=== PATIENT | female | born 1955 | race Caucasian/White ===

== ENCOUNTER → 2020-06-18 08:20 | Outpatient (BNVA) | payer OTHER, SELFPAY | PROVIDERS: Family Provider Family Medicine; Referring Provider Family Medicine; Visit Provider Podiatrist Foot & Ankle Surgery | DX: M25.571 Pain in right ankle and joints of right foot (principal) | CPT/HCPCS: 73610 ==

== ENCOUNTER 2022-04-22 17:11 | Emergency (ER) | payer MEDICARE, SELFPAY ==
[2022-04-22 17:37] VITALS: BP 167/88; PULSE 96; RESP 16; TEMP 36.8; O2SAT 98; BMI 33.3
--- NOTE | 2022-04-22 17:45 | ED_ITS ---
HPI - Extremity Problem General: Chief complaint: Extremity Problem,Nontraumatic Stated complaint: Back of right leg pain Time Seen by Provider: 04/22/22 17:43 History of Present Illness: 66-year-old female comes in today with complaints of increased swelling and tenderness to the right calf. Patient reports about 6 weeks ago she had twisted her knee and has been nursing the injury for the last 6 weeks. Today she had an x-ray done for further evaluation due to persistent pain. Patient comes to the ER due to concerns that she may be developing a blood clot. Associated symptoms: Deny chest pain Review of Systems General: Reports: 10 or more systems reviewed and unremarkable except in HPI and below Card: Denies: chest pain Resp: Denies: dyspnea Musc: Reports: extremity pain PFS ED PFSH: Medical History (Updated 04/22/22 @ 19:35 by CHATO Dillon) Family history of narcolepsy History of CVA (cerebrovascular accident) Surgical History (Updated 06/18/20 @ 09:04 by Eduardo Roth DPM) History of D&C History of exploratory laparotomy History of pelvic surgery Family History (Updated 06/18/20 @ 08:12 by Ami Chaudhari LPN) Other CAD (coronary artery disease) Cancer Diabetes Stroke Social History (Updated 06/18/20 @ 08:13 by Ami Chaudhari LPN) Smoking and tobacco status: never smoked Second hand smoke exposure: No Alcohol intake: never Household members: spouse Physical Exam Const: COMMON NORMALS: patient oriented x3 Neck/C-Spine: COMMON NORMALS: full ROM Resp: COMMON NORMALS: normal respiratory effort and clear to auscultation bilaterally AUSCULTATION: clear to auscultation bilaterally Cardio: COMMON NORMALS: regular rate RATE: regular rate GI: COMMON NORMALS: Soft to palpation PALPATION: Yes Soft to palpation Extremity: COMMON NORMALS: full ROM RIGHT LOWER EXTREMITY: Yes lower leg (Calf tenderness and swelling) Right lower leg: Yes inspection, Yes palpation and Yes neurovascular exam Neuro: COMMON NORMALS: patient oriented x3 Course Vital Signs: Vital signs: Vital Signs Temperature 98.2 F 04/22/22 18:06 Pulse Rate 96 04/22/22 18:06 Respiratory Rate 16 04/22/22 18:06 Blood Pressure 167/88 04/22/22 18:06 Pulse Oximetry 98 04/22/22 18:06 Oxygen Delivery Me thod 04/22/22 18:06 MDM - Extremity (Nontraumatic) Medical Decision Making 66-year-old female comes in today with complaints of right lower extremity pain and discomfort. Patient has pain in the calf that increases with ambulation. Patient injured her leg about 6 weeks ago. Patient had some x-rays done at [facility] today which were unremarkable. On exam patient has tenderness to the right calf with some popliteal angle tenderness. Homans' sign is positive. Differential diagnosis includes not limited to Barker's cyst, meniscal tear, DVT. Ultrasound was negative for DVT. Since patient has had pain for the last 6 weeks with minimal improvement I recommend that she follow-up with orthopedics for further evaluation. Patient reported understanding agreed to plan. Case management referral was requested. Lab Data Radiology Impressions Venous Duplex 04/22/22 17:55 IMPRESSION: No evidence of deep vein thrombosis. Discharge Plan Discharge Patient Disposition: Home Clinical Impression: Pain of right calf Condition: Stable Prescriptions: No Action modafinil [Provigil] 200 mg tablet 300 mg PO DAILY multivitamin Tablet 1 tab PO DAILY terbinafine HCl 250 mg tablet 250 mg PO DAILY 30 Days Qty: 30 2RF Discharge Orders: Discharge ED (Routine); Ordered 04/22/22 Ordered By: Laron Oates Discharge Diet: Usual diet Discharge Activity: Increase activity as tolerated Patient Instructions: Knee Pain (ED) Activity Restrictions/Additional Instructions: Increase activity as tolerated. Use acetaminophen or ibuprofen to control pain. Use ice or heat for further pain relief. Follow-up with primary care for further instruction and referral to orthopedics for further evaluation and treatment. Coding Level of Care Code ED Structural Analysis Engineer for Shilo Fwd Exam Detailed
--- NOTE | 2022-04-22 17:55 | USR_ITS ---
PROCEDURE INFORMATION: Exam: US Duplex Right Lower Extremity Veins, Limited Exam date and time: 04/22/2022 6:51 PM Age: 66 years old Clinical indication: Injury or trauma; Other: 1. Patient had twisting injury to right knee early February, pain ever since. Has seen primary. 2. Now pain in rle continues. 3. No HX dvt; Injury date: 03/02/2022; Additional info: R/O dvt, calf pain and swelling TECHNIQUE: Imaging protocol: Real-time Duplex ultrasound of the Right Lower Extremity with 2-D freeman scale, color Doppler flow and spectral waveform analysis with image documentation. Limited exam was focused on the right lower extremity veins. COMPARISON: CR (LOW EXM, ) 06/18/2020 8:25 AM FINDINGS: Right deep veins: Unremarkable. The common femoral, femoral, proximal profunda femoral and popliteal veins are patent without thrombus. Normal Doppler waveforms. Normal compressibility and/or augmentation response. Right superficial veins: Unremarkable. Saphenofemoral junction is patent without thrombus. Soft tissues: Unremarkable. US/[place] [id number] IMPRESSION: No evidence of deep vein thrombosis.
[2022-04-22 18:06] VITALS: BP 167/88; PULSE 96; RESP 16; TEMP 36.8; O2SAT 98
--- NOTE | 2022-04-23 10:00 | DCPLANNER ---
Addendum entered by Joi Fierro 04/27/22 15:48: employee benefits manager received the following message from the ortho clinic regarding follow up appointment: pt declined appointment Original Note: employee benefits manager had message to schedule a follow up appointment for patient with ortho. employee benefits manager sent patients information to the front office staff at ortho. Patients information will be printed and reviewed. Clinic will call patient with appointment information.
== END 2022-04-22 19:41 | disposition home or self-care (01) ==
PROVIDERS: Emergency Provider Nurse Practitioner Family
DX: M79.661 Pain in right lower leg (principal); Z86.73 Personal history of transient ischemic attack (TIA), and cerebral infarction without residual deficits
CPT/HCPCS: 93971; 99284

== ENCOUNTER 2022-08-16 08:36 | Outpatient (RCR) | payer MEDICARE, SELFPAY | END 2022-08-28 23:59 | disposition home or self-care (01) | LOC: SPT 08:36 | PROVIDERS: Visit Provider Chiropractor | DX: M25.561 Pain in right knee (principal) | CPT/HCPCS: 97161 ==

== ENCOUNTER 2022-08-29 06:00 | Outpatient (RCR) | payer MEDICARE, SELFPAY | END 2022-09-28 23:59 | disposition home or self-care (01) | LOC: SPT 06:00 | PROVIDERS: Visit Provider Chiropractor | DX: M25.561 Pain in right knee (principal) | CPT/HCPCS: 97110 ==

== ENCOUNTER 2022-09-29 06:00 | Outpatient (RCR) | payer MEDICARE, SELFPAY | END 2022-10-26 23:59 | disposition home or self-care (01) | LOC: SPT 06:00 | PROVIDERS: Visit Provider Chiropractor | DX: M25.561 Pain in right knee (principal) | CPT/HCPCS: 97110 ==

== ENCOUNTER → 2024-03-28 13:59 | Outpatient (BNVA) | payer MEDICARE, SELFPAY | PROVIDERS: Visit Provider Nurse Practitioner Family | DX: L57.0 Actinic keratosis (principal); L82.0 Inflamed seborrheic keratosis; L91.8 Other hypertrophic disorders of the skin; L20.89 Other atopic dermatitis; L72.11 Pilar cyst; L82.1 Other seborrheic keratosis; D22.5 Melanocytic nevi of trunk; L81.4 Other melanin hyperpigmentation; L98.8 Other specified disorders of the skin and subcutaneous tissue | CPT/HCPCS: 17000; 17110; 99204 ==